=== PATIENT | female | born 1940 | race Caucasian/White ===

== ENCOUNTER 2021-07-20 14:27 | Emergency (ER) | payer MEDICARE, OTHER ==
[2021-07-20] MEDS ORDERED: Orphenadrine Citrate 60 MG/2 ML VIAL ONE (15:13)
== END 2021-07-20 15:50 | disposition home or self-care (01) ==
LOC: MADERS 14:27
DX: M79.18 Myalgia, other site (principal); E03.9 Hypothyroidism, unspecified; X50.9XXA Other and unspecified overexertion or strenuous movements or postures, initial encounter; Y93.H2 Activity, gardening and landscaping; Z79.899 Other long term (current) drug therapy
CPT/HCPCS: 72170; 96372; J2360